=== PATIENT | female | born 1970 | race Caucasian/White ===

== ENCOUNTER 2020-04-29 09:18 | Emergency (ER) | payer OTHER ==
[~2020-04-29] VITALS: Ht 170.2 cm; Wt 93.0 kg
[2020-04-29] MEDS ORDERED: IBU800 MG PO (11:34)
[2020-04-29] MEDS ORDERED: SILVER SULFADIA50 G1 TOP (11:34)
== END 2020-04-29 11:42 | disposition home or self-care (01) ==
LOC: ER 09:18
DX: T22.212A Burn of second degree of left forearm, initial encounter (principal); T31.0 Burns involving less than 10% of body surface; X19.XXXA Contact with other heat and hot substances, initial encounter
CPT/HCPCS: 99283-25